=== PATIENT | female | born 1990 | race African-American/Black ===

== ENCOUNTER 2023-06-15 08:48 | Emergency (ER) | payer OTHER ==
[~2023-06-15] VITALS: Ht 162.6 cm; Wt 73.0 kg
[2023-06-15 08:52] VITALS: BP 131/81; PULSE 94; RESP 16; TEMP 98.7; O2SAT 98
[2023-06-15] MEDS ORDERED: NAPROXEN 250MG TABLET PO ONE (10:45)
[2023-06-15] MEDS: METOCLOPRAMIDE HCL 10MG TABLET PO ONE (11:05)
[2023-06-15] MEDS: NAPROXEN 500MG TABLET PO NR (11:05)
[2023-06-15 11:35] LABS: CLARITY URINE CLEAR (CLEAR); COLOR URINE YELLOW (YELLOW); GLUCOSE URINE NEGATIVE (NEGATIVE); KETONES URINE NEGATIVE (NEGATIVE); LEUKOCYTE ESTERASE URINE 1+ (NEGATIVE); NITRITE URINE NEGATIVE (NEGATIVE); OCCULT BLOOD URINE TRACE (NEGATIVE); PROTEIN URINE NEGATIVE (NEGATIVE); SPECIFIC GRAVITY URINE 1.022 (1.005-1.030)
[2023-06-15 11:54] LABS: MUCUS URINE 1+ /lpf (< = 2+); SQUAMOUS EPITHELIAL CELL URINE 2+ /lpf (RARE/1+)
[2023-06-15 11:56] LABS: BACTERIA URINE 2+; RBC URINE 0-2 /hpf (0-2)
[2023-06-15] MEDS ORDERED: NAPR-681 PO (12:06)
[2023-06-15] MEDS ORDERED: CEPH500T MT (12:06)
[2023-06-15] MEDS ORDERED: ONDA4TAB11 PO (12:06)
== END 2023-06-15 10:43 | disposition home or self-care (01) ==
LOC: ER 09:06
DX: R51.9 Headache, unspecified (principal); M79.10 Myalgia, unspecified site; N39.0 Urinary tract infection, site not specified; Z20.822 Contact with and (suspected) exposure to COVID-19
CPT/HCPCS: 99283; 87426; 81003; 81025; 87086; J8597